=== PATIENT | female | born 1990 | race Hispanic/Latino ===

== ENCOUNTER 2020-05-04 17:01 | Emergency (ER) | payer OTHER, SELFPAY ==
[2020-05-04 17:10] VITALS: BP 153/99; PULSE 74; RESP 16; TEMP 37.3; O2SAT 100
--- NOTE | 2020-05-04 17:14 | ED.DENTAL ---
HPI - Dental/Oral General Chief complaint: Dental/Oral Stated complaint: Tooth Pain Time Seen by Provider: 05/04/20 17:14 Source: patient Mode of arrival: ambulatory Limitations: no limitations History of Present Illness HPI Narrative: Jennifer Walsh is a 29 yo female with no PMH [facility]-sided [facility] pain. Had fillings 3 days ago pain is continually gotten worse, teeth 18-20, pulling in the back on the left, complaining of ear pain also Related Data Allergies Allergy/AdvReac Type Severity Reaction Status Date / Time No Known Allergies Allergy Unknown Verified 05/04/20 17:14 Review of Systems Review of Systems: Narrative: CONSTITUTIONAL: Denies fever, chills, sweats. EYES: Denies visual changes, redness, discharge. ENT: Denies rhinorrhea, congestion, sore throat, Mouth; left-sided swelling, tooth pain 18-20, left ear pain CARDIOVASCULAR: Denies chest pain, palpitations, edema. RESPIRATORY: Denies dyspnea, wheezing, cough GASTROINTESTINAL: Denies abdominal pain, nausea, vomiting, diarrhea. GENITOURINARY: Denies dysuria, hematuria, abnormal discharge SKIN: Denies rash or itching. NEUROLOGIC: Denies numbness, or focal weakness. PSYCHIATRIC: Denies anxiety or depression. PMFSH Past Medical History Medical History No acute medical problems Family History Family History (Updated 05/04/20 @ 17:22 by Leilani Landeros CNP) Other High cholesterol Hypertension Social History Social History (Updated 05/04/20 @ 17:22 by Leilani Landeros CNP) Smoking status: Never smoker Alcohol intake: current Comments At time of signature, I agree with nursing past medical, surgical, social and family history. There is no relevant family history pertinent to the presenting complaint. Blood pressure on patient is elevated, will follow-up with PCP Exam Narrative: Exam Narrative: GENERAL: This is a well-nourished, well-developed patient, in mild distress. HEAD: normocephalic, atraumatic. EYES: Sclera clear/white. Vision is grossly intact. EARS: External ears normal, auditory canals clear and without drainage, bilateral erythema in canals. Hearing grossly intact. NOSE: External nose normal without nasal discharge, nares without redness, no rhinorrhea. THROAT: Mucous membranes moist, posterior pharynx mild erythema mouth: Swelling lower left between 18-20 with pain NECK: Neck supple, non-tender CARDIOVASCULAR: Regular rate and rhythm without murmurs, gallops, or rubs. RESPIRATORY: Clear to auscultation. Breath sounds equal bilaterally. GASTROINTESTINAL: Abdomen soft, non-tender, SKIN: warm, intact with no suspicious lesions or rash, good texture and turgor. NEURO: awake, alert, and oriented to person, place and time. There were no obvious focal neurologic abnormalities. Steady gait EXTREMITIES: Normal range of motion. BACK: Nontender without deformity Course Course Emergency Course: Patient came with dental pain after being a dentist couple days ago and pain is continually gotten worse Swelling on left side of lower gums started on penicillin given directions on alternating ibuprofen and Tylenol will give tramadol discussed trying to eat soft foods in order to have enough to cover taking those medications, avoid nausea Vital Signs Vital signs: Vital Signs Temperature 99.2 F 05/04/20 17:10 Pulse Rate 74 05/04/20 17:10 Respiratory Rate 16 05/04/20 17:10 Blood Pressure 153/99 H 05/04/20 17:10 Pulse Oximetry 100 05/04/20 17:10 Temperature 99.2 F 05/04/20 17:10 Pulse Rate 74 05/04/20 17:10 Respiratory Rate 16 05/04/20 17:10 Blood Pressure 153/99 H 05/04/20 17:10 Pulse Oximetry 100 05/04/20 17:10 MDM - Dental/Oral Differential Diagnosis Differential diagnosis: Likely dental caries, toothache, dental abscess, fracture of tooth and other Discharge Plan Discharge Clinical Impression: Toothache Pat
== END 2020-05-04 17:30 | disposition home or self-care (01) ==
PROVIDERS: Emergency Provider Nurse Practitioner; PCP Registered Nurse
DX: K08.89 Other specified disorders of teeth and supporting structures (principal)
CPT/HCPCS: 99213; G0463